=== PATIENT | female | born 1940 | race Caucasian/White ===

== ENCOUNTER 2024-09-13 18:31 | Emergency (ER) | payer OTHER ==
[~2024-09-13] VITALS: Ht 165.1 cm; Wt 50.0 kg
[2024-09-13 18:36] VITALS: O2SAT 98
[2024-09-13] MEDS ORDERED: LIDOCAINE HCL/EPINEPHRINE 1%-EPI 1:100,000 10ML VIAL INFIL ONE (19:45)
[2024-09-13] MEDS: LIDOCAINE HCL/EPINEPHRINE 1%-EPI 1:100,000 20ML VIAL INFIL NR (20:00)
[2024-09-13 20:15] VITALS: BP 177/73; PULSE 83; RESP 19; TEMP 37.1; O2SAT 95
[2024-09-13] MEDS ORDERED: TOPUD PO (23:04)
== END 2024-09-14 00:01 | disposition home or self-care (01) ==
LOC: ER 18:31
DX: S01.01XA Laceration without foreign body of scalp, initial encounter (principal); S09.90XA Unspecified injury of head, initial encounter; E78.00 Pure hypercholesterolemia, unspecified; W18.30XA Fall on same level, unspecified, initial encounter; Y93.89 Activity, other specified; Y92.009 Unspecified place in unspecified non-institutional (private) residence as the place of occurrence of the external cause; Y99.8 Other external cause status
CPT/HCPCS: 99284; 70450; 12002; 93005; J2004